=== PATIENT | female | born 2000 | race American Indian/Alaskan Native ===

== ENCOUNTER 2021-11-21 12:46 | Outpatient (CLI) | payer SELFPAY ==
[2021-11-21 13:22] VITALS: BP 124/72
[2021-11-21] MEDS ORDERED: LACTATED RINGERS 500 ML IV ONE (14:00)
== END 2021-11-21 14:35 | disposition home or self-care (01) ==
LOC: TRG 12:46 → APU 12:49 → TRG 14:35
PROVIDERS: ATTEND Obstetrics & Gynecology
DX: O26.892 Other specified pregnancy related conditions, second trimester (principal); R10.9 Unspecified abdominal pain; M79.89 Other specified soft tissue disorders; K08.89 Other specified disorders of teeth and supporting structures; Z3A.22 22 weeks gestation of pregnancy
CPT/HCPCS: 59025